=== PATIENT | female | born 1965 | race Two or more races ===

== ENCOUNTER 2024-02-21 00:49 | Emergency (ER) | payer SELFPAY ==
[~2024-02-21] VITALS: Ht 162.6 cm; Wt 81.2 kg
[2024-02-21 00:55] VITALS: PULSE 74; RESP 16; TEMP 97.7
[2024-02-21] MEDS: LORAZEPAM INJ 2 MG/ML VIAL IV ONE (01:29)
[2024-02-21] MEDS: ASPIRIN 81 MG CHEW TAB PO ONE (01:33)
[2024-02-21] MEDS ORDERED: ASPIRIN 81 MG CHEW TAB ONE (01:37)
[2024-02-21 06:32] VITALS: BP 129/79; PULSE 70; RESP 18; TEMP 98; O2SAT 100
== END 2024-02-21 06:32 | disposition home or self-care (01) ==
LOC: FSED 01:13
DX: R06.02 Shortness of breath (principal); R07.89 Other chest pain; R06.4 Hyperventilation
CPT/HCPCS: 71046; 80053; 81003; 82553; 84484; 85025; 85379; 93005; 96374; 99283; J2060